=== PATIENT | female | born 1980 | race Caucasian/White ===

== ENCOUNTER 2016-10-05 17:34 | Emergency (ER) | payer OTHER ==
[~2016-10-05] VITALS: Ht 160 cm; Wt 53.1 kg
[2016-10-05 18:26] VITALS: BP 121/52
== END 2016-10-05 18:26 | disposition home or self-care (01) ==
LOC: ED 17:34
DX: A60.04 Herpesviral vulvovaginitis (principal); B34.9 Viral infection, unspecified; Z79.899 Other long term (current) drug therapy

== ENCOUNTER 2016-12-01 19:59 | Emergency (ER) | payer OTHER ==
[2016-12-01 20:35] LABS: microscopic required? NO
[2016-12-01 21:01] LABS: urine erythrocyte NEGATIVE (NEGATIVE)
[2016-12-01 21:29] VITALS: BP 121/72
== END 2016-12-01 21:29 | disposition home or self-care (01) ==
LOC: ED 19:59
PROVIDERS: Emergency Medicine
DX: A60.00 Herpesviral infection of urogenital system, unspecified (principal); Z79.899 Other long term (current) drug therapy

== ENCOUNTER 2017-01-21 18:56 | Emergency (ER) | payer OTHER ==
[2017-01-21 21:28] VITALS: BP 127/92
== END 2017-01-21 21:28 | disposition home or self-care (01) ==
LOC: ED 18:56
DX: A60.04 Herpesviral vulvovaginitis (principal); F19.90 Other psychoactive substance use, unspecified, uncomplicated

== ENCOUNTER 2018-04-30 02:20 | Emergency (ER) | payer OTHER ==
[~2018-04-30] VITALS: Ht 160 cm; Wt 55.3 kg
[2018-04-30 02:26] VITALS: Ht 160 cm; Wt 55.3 kg
[2018-04-30 03:28] VITALS: BP 138/86
== END 2018-04-30 03:28 | disposition home or self-care (01) ==
LOC: ED 02:20
DX: A60.00 Herpesviral infection of urogenital system, unspecified (principal)

== ENCOUNTER 2019-02-03 08:54 | Emergency (ER) | payer OTHER ==
[~2019-02-03] VITALS: Ht 157.5 cm; Wt 56.2 kg
[2019-02-03 09:02] VITALS: BP 116/72; Ht 157.5 cm; Wt 56.2 kg
== END 2019-02-03 10:30 | disposition left against medical advice (07) ==
LOC: ED 08:54
DX: N89.8 Other specified noninflammatory disorders of vagina (principal)

== ENCOUNTER 2019-06-16 22:00 | Emergency (ER) | payer OTHER ==
[~2019-06-16] VITALS: Ht 157.5 cm; Wt 58.6 kg
[2019-06-16 22:10] VITALS: Ht 157.5 cm; Wt 58.6 kg
[2019-06-16 23:08] VITALS: BP 128/87
== END 2019-06-16 23:08 | disposition home or self-care (01) ==
LOC: ED 22:00
DX: L29.9 Pruritus, unspecified (principal); K62.89 Other specified diseases of anus and rectum

== ENCOUNTER 2020-07-03 01:09 | Emergency (ER) | payer OTHER ==
[~2020-07-03] VITALS: Ht 160 cm; Wt 62.1 kg
[2020-07-03 01:18] VITALS: Ht 160 cm; Wt 62.1 kg
[2020-07-03 03:03] VITALS: BP 125/87
== END 2020-07-03 03:03 | disposition home or self-care (01) ==
LOC: ED 01:09
DX: M75.31 Calcific tendinitis of right shoulder (principal)